=== PATIENT | male | born 1980 | race Caucasian/White ===

== ENCOUNTER 2018-10-20 19:04 | Emergency (ER) | payer OTHER, SELFPAY ==
[2018-10-20 19:04] VITALS: BP 139/88; PULSE 80; RESP 14; TEMP 36.6; BMI 23.8
--- NOTE | 2018-10-20 19:20 | RAD_ITS ---
STUDY: X-RAY - RIGHT HAND REASON FOR EXAM: Male, 38 years old. Renal puncture wound to the palm. TECHNIQUE: 3 view(s) of the hand. COMPARISON: None. FINDINGS: Normal radiocarpal articulation. Normal distal radioulnar joint. Normal visualized carpal bones. Normal carpal articulations Normal carpometacarpal articulation of the thumb. Normal second through fifth carpometacarpal joints. Normal metacarpi. Normal metacarpophalangeal joint of the thumb. Normal interphalangeal joint of the thumb. Normal proximal and distal phalanges of the thumb. Normal metacarpophalangeal joints of the second through fifth fingers. Normal proximal and distal interphalangeal joints of the second through fifth fingers. Normal phalanges of the second through fifth fingers. The soft tissue structures are unremarkable. RAD/Hand Min 3 Views IMPRESSION: No evidence of acute osseous injury. Electronically Signed: Ian Almeida DO at 20:16 EST , Service support ,
--- NOTE | 2018-10-20 19:57 | ED.DCSUM_ITS ---
- ER Visit Summary Date of Service: 10/20/18 Chief Complaint: Right hand injury History of Present Illness: The patient is a 38 M who has a right hand injury. A drill bit went to his right palm. It occurred about an hour ago. His tetanus is up-to-date. Denies any large amount of bleeding or drainage. He does have pain worse with movement. Physical Examination: Vital signs reviewed. Right hand exam reveals tenderness on the right palm. He does have a puncture wound in the center. He has full range of motion with pain of his fingers and hand. There is no erythema or bleeding. Test Results: Right hand x-ray per my interpretation reveals no evidence of fractures Emergency Department Course and Treatment: I will place the patient on Keflex. His wound will be cleansed here. He was complaining of a little bit of numbness of his fingers. I feel that this will return after swelling goes down. I will not suture this because of risk of infection. He will keep this area clean and dry. Treatment Plan: [] Disposition: Discharge Impression: Puncture wound, right hand This note was generated with [employer] dictation software. It may contain incorrect words, spelling, and punctuation that were not noted in review of the chart prior to signing ED Disposition - Plan for ED Patient: Chief Complaint: Wound Referrals: Care Physician,No Primary [Primary Care Provider] -
--- NOTE | 2018-10-20 19:58 | ED.DEP ---
ED Disposition - Plan for ED Patient: Disposition: Home or Assisted Living Chief Complaint: Wound Instructions: ED Wound Puncture General Prescriptions: Cephalexin [Keflex] 500 mg PO Q12 #14 cap Referrals: Care Physician,No Primary [Primary Care Provider] -
[2018-10-20] MEDS: Cephalexin 250 MG Capsule 500 MG PO (20:04)
[2018-10-20 20:16] VITALS: RESP 18
== END 2018-10-20 20:17 | disposition home or self-care (01) ==
PROVIDERS: Emergency Provider Emergency Medicine
DX: S61.431A Puncture wound without foreign body of right hand, initial encounter (principal); W29.8XXA Contact with other powered hand tools and household machinery, initial encounter; Y93.9 Activity, unspecified; Y92.9 Unspecified place or not applicable; Z72.0 Tobacco use
CPT/HCPCS: 73130; 99283